=== PATIENT | male | born 1985 | race African-American/Black ===

== ENCOUNTER 2022-03-27 18:59 | Emergency (ER) | payer BC ==
[~2022-03-27] VITALS: Ht 175.3 cm; Wt 77.3 kg
[2022-03-27 19:02] VITALS: TEMP 97.5
[2022-03-27] MEDS ORDERED: FLEXERIL 1010 MG/TAB PO (20:24)
[2022-03-27] MEDS ORDERED: NAPROSYN500 MG PO (20:24)
[2022-03-27 20:46] VITALS: BP 141/94; PULSE 60
== END 2022-03-27 20:46 | disposition home or self-care (01) ==
LOC: COL.ER 18:59
DX: M25.512 Pain in left shoulder (principal); Z28.310 Unvaccinated for COVID-19
CPT/HCPCS: J1885